=== PATIENT | female | born 2000 | race Asian ===

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

== ENCOUNTER 2022-05-01 08:34 | Emergency (ER) | payer BC ==
[~2022-05-01] VITALS: Ht 160 cm; Wt 49.9 kg
[~2022-05-01 08:34] MED LIST changes: +CLIN-22 PO; -CLIN150C15 PO
[2022-05-01] MEDS ORDERED: PSEU30TA36 PO (10:41)
[2022-05-01] MEDS ORDERED: IBUP-1969 PO (10:41)
== END 2022-05-01 10:56 | disposition home or self-care (01) ==
LOC: SED 08:34
DX: J40 Bronchitis, not specified as acute or chronic (principal); K21.9 Gastro-esophageal reflux disease without esophagitis; Z79.899 Other long term (current) drug therapy; Z20.822 Contact with and (suspected) exposure to COVID-19
CPT/HCPCS: 36415; 71045; 81025; 99284